=== PATIENT | male | born 1945 | race Caucasian/White ===

== ENCOUNTER → 2023-11-30 | Emergency (ER) | payer MEDICARE ==
[~2023-11-30] VITALS: Ht 175.3 cm; Wt 80.7 kg
[~2023-11-30] MED LIST: BACI/NEOM/POLY B OINT PKT 1 UDPKT PACKET ONE; TDAP [DIPH/PERTUSSIS/TET] 0.5 ML VIAL IM ONE
[2023-11-30] MEDS: BACI/NEOM/POLY B OINT PKT 1 UDPKT PACKET TP ONE (11:54)
[2023-11-30] MEDS: TDAP [DIPH/PERTUSSIS/TET] 0.5 ML VIAL IM ONE (11:54)
[2023-11-30 13:37] VITALS: BP 155/81; TEMP 98.3; O2SAT 97
== END | disposition home or self-care (01) ==
LOC: ER 10:50
DX: S01.81XA Laceration without foreign body of other part of head, initial encounter (principal); S09.90XA Unspecified injury of head, initial encounter; W01.0XXA Fall on same level from slipping, tripping and stumbling without subsequent striking against object, initial encounter; Y93.89 Activity, other specified; Y92.89 Other specified places as the place of occurrence of the external cause; Y99.8 Other external cause status
CPT/HCPCS: 12011; 70450; 90471; 90715; 99285; A6403